=== PATIENT | female | born 1945 | race Caucasian/White ===

== ENCOUNTER 2016-03-17 12:03 | Emergency (ER) | payer MEDICARE, BC ==
[~2016-03-17] VITALS: Ht 165.1 cm; Wt 75.0 kg
[~2016-03-17 12:03] MED LIST: 1-ME1LIQ PO; ASPI81TA21 PO; BENI40TA33 PO; CARV12.5 PO; FOLI1 PO; GLIM4TAB PO; LEFL20 PO; LISI-366 PO; METF-324 PO; PRED2.5T4 PO; PROT40TA PO; SIMV40 PO; [UNRECOGNIZED DRUG - CODE] PO
[2016-03-17 12:06] VITALS: BP 203/77; PULSE 85; RESP 16; TEMP 98.4; O2SAT 98
[2016-03-17] MEDS ORDERED: LEFL1TAB3 PO (12:25)
[2016-03-17] MEDS ORDERED: GLIM4TAB PO (12:25)
[2016-03-17] MEDS ORDERED: BENI40TA7 PO (12:25)
[2016-03-17] MEDS ORDERED: AMLO10TA2 PO (12:25)
[2016-03-17] MEDS ORDERED: METF-382 PO (12:25)
[2016-03-17] MEDS ORDERED: LISI40TA PO (12:25)
[2016-03-17] MEDS ORDERED: PRED2.5T PO (12:25)
[2016-03-17] MEDS ORDERED: ZOCO40TA PO (12:25)
[2016-03-17] MEDS ORDERED: FOLI1TAB4 PO (12:25)
[2016-03-17] MEDS ORDERED: CARV12.5 PO (12:25)
[2016-03-17] MEDS ORDERED: PROT40TA PO (12:25)
[2016-03-17] MEDS ORDERED: BACT800T5 PO (12:37)
--- NOTE | 2016-03-17 12:38 | PD ---
HPI Chief Complaint: Skin Problem Time Seen by Provider: 12:28 Travel History International Travel<30 days: No Contact w/Intl Traveler<30days: No Traveled to known affect area: No History of Present Illness HPI This 70-year-old female says she has noticed a lump in the perIneal area first 3 -4 days. She has not had fever. She believes is an abscess. 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 She has a history of diabetes. PFSH Past Medical History Anemia: Yes Cancer: Yes (RIGHT LUNG AND COLON) High Cholesterol: Yes Diabetes: Yes Patient Takes Glucophage: Yes GERD: Yes Hypertension: Yes Respiratory: Yes (LUNG CA) Tetanus Vaccination: Unknown Influenza Vaccination: Yes ?: Not Menopausal: Yes Past Surgical History Abdominal Surgery: Yes (COLON RESECTION) Thoracic Surgery: Yes (RIGHT LOBECTOMY) Social History Alcohol Use: No Tobacco Use: No Substance Use: No Allergies-Medications (Allergen,Severity, Reaction): Coded Allergies: No Known Allergies (Unverified , 03/17/16) Reported Meds & Prescriptions Reported Meds & Active Scripts Active Bactrim DS (Sulfamethoxazole-Trimethoprim) 800-160 Mg Tab 1 Tab PO BID Reported Zocor (Simvastatin) 40 Mg Tab 40 Mg PO HS Prednisone 2.5 Mg Tab 2.5 Mg PO DAILY Protonix (Pantoprazole Sodium) 40 Mg Tab 40 Mg PO DAILY Metformin ER (Metformin HCl) 1,000 Mg Michael 1,000 Mg PO BIDPC With evening meal Lisinopril 40 Mg Tab 40 Mg PO BID Glimepiride 4 Mg Tab 4 Mg PO DAILY Take with breakfast or first main meal Folate (Folic Acid) 1 Mg Tab 1 Mg PO DAILY Coreg (Carvedilol) 12.5 Mg Tab 12.5 Mg PO BID Benicar Hct (Olmesartan-Hydrochlorothiazide) 40-25 mg Tab 1 Tab PO DAILY Amlodipine (Amlodipine Besylate) 10 Mg Tab 10 Mg PO DAILY Leflunomide 20 Mg Tab 20 Mg PO DAILY Review of Systems General / Constitutional: No: Fever, Chills Eyes: No: Diploplia, Blurred Vision Cardiovascular: No: Chest Pain or Discomfort, Palpitations Gastrointestinal: No: Vomiting, Diarrhea Musculoskeletal: No: Myalgias Skin: Positive Lumps Psychiatric: No: Anxiety Physical Exam Narrative GENERAL: Well-developed female SKIN: Warm and dry. HEAD: Atraumatic. Normocephalic. EYES: Pupils equal and round. No scleral icterus. No injection or drainage. ENT: No nasal bleeding or discharge. Mucous membranes pink and moist. There is a 2 cm diameter swollen fluctuant area in the peroneal area there is no surrounding erythema or induration MUSCULOSKELETAL: No obvious deformities. No clubbing. No cyanosis. No edema. NEUROLOGICAL: Awake and alert. No obvious cranial nerve deficits. Motor grossly within normal limits. Normal speech. PSYCHIATRIC: Appropriate mood and affect; insight and judgment normal. Data Data Last Documented VS Vital Signs Date Time Temp Pulse Resp B/P Pulse Ox O2 Delivery O2 Flow Rate FiO2 03/17/16 12:06 98.4 85 16 203/77 98 Orders Lidocai-Epi 1%-1:100,000 Inj (Xylocaine- (03/17/16 12:45) Lidocai-Epi 1%-1:100,000 Inj (Xylocaine- (03/17/16 12:50) MDM Medical Decision Making Medical Screen Exam Complete: Yes Emergency Medical Condition: Yes Medical Record Reviewed: Yes Differential Diagnosis Patient has an abscess of the perineum. Narrative Course Abscess has been drained and packing inserted. She'll be released with prescription for Bactrim Diagnosis Primary Impression: Abscess of perineum Scripts Sulfamethoxazole-Trimethoprim (Bactrim DS)800-160 Mg Tab1 Tab PO BID #14 TAB Ref 0 Prov:Kemar Simon MD 03/17/16 Disposition: 01 DISCHARGE HOME Condition: Stable Kemar Simon MD Mar 17, 2016 12:38
[2016-03-17] MEDS ORDERED: LIDOCAINE 1%/EPINEPHrine 1:100,000 SOLN 20 ML VIAL INFIL ONE ×2 (12:45)
[2016-03-17] MEDS ORDERED: LIDOCAINE 1%/EPINEPHrine 1:100,000 SOLN 30 ML VIAL INFIL ONE (12:50)
--- NOTE | 2016-03-17 13:40 | PD ---
Physical Exam Time Seen by Provider: 13:10 Narrative I was asked by Dr. Foreman to perform an incision and drainage on this patient. Please see his note for further details. Data Data Last Documented VS Vital Signs Date Time Temp Pulse Resp B/P Pulse Ox O2 Delivery O2 Flow Rate FiO2 03/17/16 12:06 98.4 85 16 203/77 98 Orders Lidocai-Epi 1%-1:100,000 Inj (Xylocaine- (03/17/16 12:45) Lidocai-Epi 1%-1:100,000 Inj (Xylocaine- (03/17/16 12:50) Wound Culture And Gram Stain (03/17/16 13:31) MDM Medical Record Reviewed: Yes Supervised Visit with JAMES: Yes Procedures Procedure Narrative INCISION AND DRAINAGE OF ABSCESS: The area was prepped and was sterilely draped. A subcutaneous wheal of 1% lidocaine with epinephrine with a total number 3 mL was used to anesthetize the area properly. A number 11 scalpel was used to make a 1 cm incision across the area of the abscess. The abscess was drained, complex loculations were broken down, and irrigated with normal saline. Cultures were obtained. Quarter inch iodoform packing was placed in the wound. Sterile dressing applied. Patient advised to have packing removed in two days. Diagnosis Primary Impression: Abscess of perineum Referrals: Primary Care Physician call for appointment Patient Instructions: General Instructions, Abscess Incision and Drainage (ED) , Abscess (ED) Departure Forms: Tests/Procedures Scripts Sulfamethoxazole-Trimethoprim (Bactrim DS)800-160 Mg Tab1 Tab PO BID #14 TAB Ref 0 Prov:Kemar Simon MD 03/17/16 Disposition: 01 DISCHARGE HOME Condition: Stable Darlyn Stewart Mar 17, 2016 13:40
== END 2016-03-17 13:39 | disposition home or self-care (01) ==
LOC: PHED 12:03
DX: L02.215 Cutaneous abscess of perineum (principal); I10 Essential (primary) hypertension; E78.00 Pure hypercholesterolemia, unspecified; E11.9 Type 2 diabetes mellitus without complications
CPT/HCPCS: 56405; 87070

== ENCOUNTER 2016-03-19 12:01 | Emergency (ER) | payer MEDICARE, BC ==
[~2016-03-19] VITALS: Ht 165.1 cm; Wt 75.0 kg
[~2016-03-19 12:01] MED LIST changes: -1-ME1LIQ PO; +AMLO10TA2 PO; -ASPI81TA21 PO; +BACT800T5 PO; -BENI40TA33 PO; +BENI40TA7 PO; -FOLI1 PO; +FOLI1TAB4 PO; +LEFL1TAB3 PO; -LEFL20 PO; -LISI-366 PO; +LISI40TA PO; -METF-324 PO; +METF-382 PO; +PRED2.5T PO; -PRED2.5T4 PO; -SIMV40 PO; +ZOCO40TA PO; -[UNRECOGNIZED DRUG - CODE] PO
[2016-03-19 12:11] VITALS: BP 129/55; PULSE 80; RESP 16; TEMP 98.9; O2SAT 96
--- NOTE | 2016-03-19 12:35 | PD ---
HPI Chief Complaint: Wound/Suture/Staple Re-Check Time Seen by Provider: 12:26 Travel History International Travel<30 days: No Contact w/Intl Traveler<30days: No Traveled to known affect area: No History of Present Illness HPI 70-year-old female presents to the emergency room for packing removal. Patient had packing placed 2 days ago after incision and drainage of perineal abscess. Patient states she saw the packing fall out after using the restroom yesterday but thought that there were 2 strips of packing so she returned to have the second strip removed. She has been taking antibiotics as directed. Denies fever, chills, nausea, vomiting. Denies pain, drainage. PFSH Past Medical History Anemia: Yes Cancer: Yes (RIGHT LUNG AND COLON) High Cholesterol: Yes Diabetes: Yes Patient Takes Glucophage: Yes (03-19-16) Diminished Hearing: No GERD: Yes Hypertension: Yes Respiratory: Yes (LUNG CA) Immunizations Current: Yes Tetanus Vaccination: Unknown Influenza Vaccination: Yes ?: Not Menopausal: Yes Past Surgical History Abdominal Surgery: Yes (COLON RESECTION) Thoracic Surgery: Yes (RIGHT LOBECTOMY) Social History Alcohol Use: No Tobacco Use: No Substance Use: No Allergies-Medications (Allergen,Severity, Reaction): Coded Allergies: No Known Allergies (Unverified , 03/17/16) Reported Meds & Prescriptions Reported Meds & Active Scripts Active Bactrim DS (Sulfamethoxazole-Trimethoprim) 800-160 Mg Tab 1 Tab PO BID Reported Zocor (Simvastatin) 40 Mg Tab 40 Mg PO HS Prednisone 2.5 Mg Tab 2.5 Mg PO DAILY Protonix (Pantoprazole Sodium) 40 Mg Tab 40 Mg PO DAILY Metformin ER (Metformin HCl) 1,000 Mg Michael 1,000 Mg PO BIDPC With evening meal Lisinopril 40 Mg Tab 40 Mg PO BID Glimepiride 4 Mg Tab 4 Mg PO DAILY Take with breakfast or first main meal Folate (Folic Acid) 1 Mg Tab 1 Mg PO DAILY Coreg (Carvedilol) 12.5 Mg Tab 12.5 Mg PO BID Benicar Hct (Olmesartan-Hydrochlorothiazide) 40-25 mg Tab 1 Tab PO DAILY Amlodipine (Amlodipine Besylate) 10 Mg Tab 10 Mg PO DAILY Leflunomide 20 Mg Tab 20 Mg PO DAILY Review of Systems Except as stated in HPI: all other systems reviewed are Neg Physical Exam Narrative GENERAL: Well-nourished, well-developed female in no acute distress. Afebrile. Ambulatory. SKIN: Warm and dry. There is an indurated area in the left perineum which measures about 2 cm in diameter. No drainage, inflammation, or lymphangitis. Nontender. No packing in place. HEAD: Normocephalic. EYES: No scleral icterus. No injection or drainage. NECK: Supple, trachea midline. No JVD or lymphadenopathy. Data Data Last Documented VS Vital Signs Date Time Temp Pulse Resp B/P Pulse Ox O2 Delivery O2 Flow Rate FiO2 03/19/16 12:11 98.9 80 16 129/55 96 MDM Medical Decision Making Medical Screen Exam Complete: Yes Emergency Medical Condition: Yes Medical Record Reviewed: Yes Differential Diagnosis Packing removal versus line infection versus abscess Narrative Course 70-year-old female presents to the emergency room for packing removal. Patient had packing placed 2 days ago in her perineum after abscess incision and drainage. Reports improvement in symptoms. Vital signs stable. Resting comfortable. Area is nontender and nonerythematous. No drainage. No evidence of packing. Patient states she saw it in her underwear. Discharged with wound care instructions and told to continue antibiotic as directed or return sooner for worsening symptoms. She understands and agrees to this plan Diagnosis Primary Impression: Abscess packing removal Referrals: Primary Care Physician Patient Instructions: Abscess Follow-up (ED), General Instructions Additional Instructions: Continue antibiotics. Keep wound clean and dry. Follow up with a primary care physician, as needed. Return to emergency room for worsening symptoms. Disposition: 01 DISCHARGE HOME Condition: Stable Darlyn Stewart Mar 19, 2016 12:35
== END 2016-03-19 12:50 | disposition home or self-care (01) ==
LOC: PHEFT 12:01
DX: L02.215 Cutaneous abscess of perineum (principal); Z48.00 Encounter for change or removal of nonsurgical wound dressing
CPT/HCPCS: 99281